=== PATIENT | female | born 1985 | race Caucasian/White ===

== ENCOUNTER → 2018-10-28 | Outpatient (CLI) | payer OTHER ==
[2018-10-28 08:10] LABS: BASOPHIL % 0.4 % (0-2); PLATELET COUNT 196 x10^3mcL (130-400); RED CELL DISTRIBUTION WIDTH 12.3 % (11.5-14.5)
[2018-10-28 09:24] LABS: GLUCOSE FASTING 88 mg/dL (70-110)
== END | disposition home or self-care (01) ==
LOC: LB 07:20
DX: Z34.90 Encounter for supervision of normal pregnancy, unspecified, unspecified trimester (principal); N30.00 Acute cystitis without hematuria; Z11.3 Encounter for screening for infections with a predominantly sexual mode of transmission
CPT/HCPCS: 87491; 87591

== ENCOUNTER → 2018-11-12 | Outpatient (CLI) | payer OTHER | END | disposition home or self-care (01) | LOC: LB 11:46 | DX: Z34.91 Encounter for supervision of normal pregnancy, unspecified, first trimester (principal) ==

== ENCOUNTER → 2018-12-10 | Outpatient (CLI) | payer OTHER | END | disposition home or self-care (01) | LOC: LB 08:54 | DX: Z34.92 Encounter for supervision of normal pregnancy, unspecified, second trimester (principal) ==

== ENCOUNTER → 2019-02-25 | Outpatient (CLI) | payer OTHER ==
[2019-02-25 08:21] LABS: GLUCOSE FASTING 82 mg/dL (70-110)
[2019-02-25 08:52] LABS: BASOPHIL % 0.2 % (0-2); PLATELET COUNT 187 x10^3mcL (130-400); RED CELL DISTRIBUTION WIDTH 13.7 % (11.5-14.5)
== END | disposition home or self-care (01) ==
LOC: LB 07:05
DX: Z34.90 Encounter for supervision of normal pregnancy, unspecified, unspecified trimester (principal); M30.0 Polyarteritis nodosa